=== PATIENT | female | born 1930 | race Caucasian/White ===

== ENCOUNTER 2017-11-20 08:56 | Outpatient (CLI) | payer OTHER | END 2017-11-20 09:03 | disposition home or self-care (01) | LOC: RX STUDY 08:56 | DX: R10.13 Epigastric pain (principal); R11.0 Nausea; R11.2 Nausea with vomiting, unspecified; R12 Heartburn ==

== ENCOUNTER 2020-05-18 08:53 | Inpatient (IN) | payer OTHER ==
[~2020-05-18] VITALS: Ht 157.5 cm; Wt 72.6 kg
[2020-05-18] MEDS ORDERED: CALAN SR120 MG (09:06)
[2020-05-18] MEDS ORDERED: BUSPIRONE HCL7.5 MG (09:06)
--- NOTE | 2020-05-18 09:06 | NUR ---
SE RECIBE PACIENTE ALERTA Y ORIENTADA EN CASTRO JESSY ESFERAS QUIEN LLEGA AMBULANCIA, PARAMEDICOS REFIERE PACIENTE PRESENTO TRAUMA POR CAIDE EL . PACIENTE REFIERE DELMY DOLOR EN CADERA RT.
--- NOTE | 2020-05-18 10:00 | NUR ---
SE RECIBE PACIENTE ALERTA Y ORIENTADA EN CASTRO JESSY ESFERAS. SE ORIENTA A PACIENTE SOBRE PROCEDIMEINTO Y TX, REFIERE ENTENDER. MS. ROGERS EXTRAE MUESTRAS DE LABORATORIO CON MEDIDAS ASEPTICAS Y ENVIA A LABORATORIO.
--- NOTE | 2020-05-18 10:33 | NUR ---
SE ORIENTA A PTE Y FAMILIAR SOBRE PROCEDIMIENTO DE QUEEN[place], AMBOS REFIEREN ENTEN GABBI. SE LIMPIA AREA ANTES DE PROCESO. SE INSERTA QUEENIE #16 UTILIZANDO MEDIDAS ESTERIL, HAY RETORNO Y SE INFLA B[place] CON 10CC DE SALINA. SE MARCIN PTE EN CAMA BAJA, BARANDAS ELEVADAS, FRENOS AJUSTADOS Y TIMBRE ACCESIBLE.
[2020-05-24] MEDS ORDERED: ELIQUIS2.5 MG PO (07:29)
[2020-05-24] MEDS ORDERED: PERCOCET 5-3251 EACH PO (07:29)
== END 2020-05-24 16:38 | DRG 522 ==
LOC: ER 08:53 → SEC-K 13:59 → SURG 18:42
PROVIDERS: ADMIT Orthopaedic Surgery; ATTEND Orthopaedic Surgery
PROC: 0SRR0JZ Replacement of Right Hip Joint, Femoral Surface with Synthetic Substitute, Open Approach (ICD-10-PCS; principal; 2020-05-18 18:00)
PROC: 30233N1 Transfusion of Nonautologous Red Blood Cells into Peripheral Vein, Percutaneous Approach (ICD-10-PCS; 2020-05-20)
DX: S72.111A Displaced fracture of greater trochanter of right femur, initial encounter for closed fracture (principal); D62 Acute posthemorrhagic anemia; N39.0 Urinary tract infection, site not specified; W18.39XA Other fall on same level, initial encounter; M81.8 Other osteoporosis without current pathological fracture; Z20.828 Contact with and (suspected) exposure to other viral communicable diseases; I10 Essential (primary) hypertension